=== PATIENT | female | born 1945 | race Caucasian/White ===

== ENCOUNTER → 2022-10-09 13:35 | Outpatient (CLI) | payer MEDICARE, OTHER, SELFPAY ==
[2022-10-09 15:32] LABS: Adenovirus F 40/41 Not Detected (Not Detect); Astrovirus Not Detected (Not Detect); Campylobacter Not Detected (Not Detect); Clostridium difficile toxin AB Not Detected (Not Detect); Cryptosporidium Detected (Not Detect); Cyclospora cayetanensis Not Detected (Not Detect); Entamoeba histolytica Not Detected (Not Detect); Enteroaggregative E.coli Not Detected (Not Detect); Enteropathogenic E.coli Detected (Not Detect); Enterotoxigenic E.coli It/st Not Detected (Not Detect); Giardia lamblia Not Detected (Not Detect); Norovirus GI/GII Not Detected (Not Detect); Plesiomonsa shigelloides Not Detected (Not Detect); Rotavirus A Not Detected (Not Detect); Salmonella Not Detected (Not Detect); Sapovirus Not Detected (Not Detect); Shiga-like toxin-prod E.coli Not Detected (Not Detect); Shigella/Enteroinvasive E.coli Not Detected (Not Detect); Vibrio Not Detected (Not Detect); Vibrio cholerae Not Detected (Not Detect); Yersinia enterocolitica Not Detected (Not Detect)
== END ==
PROVIDERS: Registered Nurse; Referring Provider Nurse Practitioner Family; Visit Provider Nurse Practitioner Family
DX: R19.7 Diarrhea, unspecified (principal)
CPT/HCPCS: 87329; 87507

== ENCOUNTER → 2022-10-15 14:10 | Outpatient (CLI) | payer MEDICARE, OTHER, SELFPAY ==
[2022-10-15 15:44] LABS: Occult Blood 1 Negative (Negative); Occult Blood 2 Negative (Negative); Occult Blood 3 Negative (Negative)
== END ==
PROVIDERS: Referring Provider Nurse Practitioner Family; Visit Provider Nurse Practitioner Family
DX: R19.7 Diarrhea, unspecified (principal)
CPT/HCPCS: 82270

== ENCOUNTER → 2025-08-09 09:25 | Outpatient (CLI) | payer MEDICARE, OTHER, SELFPAY ==
--- NOTE | 2025-08-09 13:00 | ST.SWALLOW ---
Visit Care Team Role Provider Type Jennifer Olson DO Primary Care Provider Non-Staff Specialty: Family Practice Address: [address] [place] [address], [id number] Email: Mainor Flowers MD Attending Provider Physician Referring Provider Specialty: Ear, Nose, Throat Address: [address] [place] [address], [id number] Email: [email or web address] Modified Barium Swallow Study [employer] Modified Barium Swallow Study Start: 08/09/25 11:41 Freq: Status: Active Protocol: Document 08/09/25 11:41 LNK (Rec: 08/09/25 13:00 LNK Desktop) Modified Barium Swallow Study Total Time Visit Start Time 10:00 Visit Stop Time 10:45 Total Visit Minutes 45 Referral Referring Physician Mainor Flowers MD, ENT Reason for Referral dysphagia Setting Setting Outpatient Care Patient Information Identification Type Name,Date of Patient History Pt was seen for a Modified Barium Swallow study at the referral of Dr. Flowers, ENT. Pt reported difficulty swallowing large pills (i.e., supplements) and foods like breads and meats. She described a globus sensation near the thyroid notch that has been ongoing or the past year. Pt noted that drinking a lot of water helps relieve the sensation. During meals, pt reported she normally doesn't drink liquids. Pt denied any difficulty swallowing liquids. Pt stated she has no formal diagnosis of GERD although she suspects she may have reflux as she occasionally needs to take Pepcid AC. Relative to other PMH, the pt denied any neurological diagnoses and/or history of head/neck surgery/injury. Subjective Pt was seated in the flouroscopy chair with directions Observations and procedures explained for her. She indicated she understood and agreed to proceed. Patient Positioning Position View Lat-A/P Imaging Lateral View Textures Administered Trials Presented Thin Liquid via Spoon (IDDSI 0),Thin Liquid via Cup ( IDDSI 0),Extremely Thick Liquid via Spoon (IDDSI 4), Regular (IDDSI 7) Barium Tablet Yes The IDDSI Framework Protocol: IDDSI.1 Oral Impairment Source: The Modified Barium Swallow Impairment Profile (MBSImP??) Lip Closure No labial escape Tongue Control Cohesive bolus between tongue to palatal seal During Bolus Hold Bolus Preparation/ Timely & efficient chewing & mashing Mastication Bolus Transport/ Brisk tongue motion Lingual Motion Oral Residue Trace residue lining oral structures Location Tongue Initiation of Bolus head at posterior angle of ramus (first hyoid Pharyngeal Swallow excursion) Additional Oral *OME and DKS were observed to be WNL. Impairment *Dentition natural and in good hygiene Observations *Mastication observed with rotary chew pattern. *Good bolus formation, control and AP transition. *Velopharyngeal closure was WNL. Oral phase of swallow WNL Pharyngeal Impairment Source: The Modified Barium Swallow Impairment Profile (MBSImP??) Soft Palate No bolus between soft palate & pharyngeal wall Elevation Laryngeal Elevation Comp.sup.move.thyroid cart.w/comp.approx.arytenoids to epiglot petiole Anterior Hyoid Complete anterior movement Excursion Epiglottic Movement Complete inversion Laryngeal Vestibular Complete; no air/contrast in laryngeal vestibule Closure Pharyngeal Stripping Present - complete Wave Pharyngoesophageal Complete distention & complete duration; no obstruction Segment Opening of flow Tongue Base No contrast between tongue base & posterior pharyngeal Retraction wall Pharyngeal Residue Collection of residue within/on pharyngeal structures Location Valleculae Additional *Hyoid/laryngeal elevation and epiglottic inversion Pharyngeal were judged to be adequate. Impairment *Tongue base retraction was mildly reduced resulting in Observations trace residue. *Pharyngeal stripping wave and cricopharyngeal opening appeared adequate and did not appear to impede bolus flow. *Post-swallow residue was mild primarily at the base of tongue and vallecula . *No laryngeal penetration or tracheal aspiration was observed. *Pharyngeal phase of swallow WNL. A/P View The IDDSI Framework Protocol: IDDSI.1 A/P View Observations Pharyngeal Complete Contraction Esophageal Clearance Complete clearance; esophageal coating Upright Position Vocal Fold Function Good Esophageal Function WFL Additional A-P Thin barium liquid and a calibrated barium tablet were Observations provided for AP trials *Initial AP view of the esophagus indicated all previous trials had cleared to the stomach *Thin barium liquid and barium tablet cleared to the stomach in a timely manner Esophageal phase of swallow observed to be WNL Clinical Impressions Dysphagia Type WNL Findings The pt presented with swallowing across all three phases to be WNL. Pt initially reported a sense of globus when eating breads, meats or when taking large supplements. She also reported that during meals, she typically has not drunk liquids, rather waiting until the meal is over to drink. During the past year, when she feels the food become stuck, she has used liquids during her meals to relieve the globus sensation. Pt's symptoms appear to be related to age effects on esophageal motility. This was explained to the pt, that, as she ages, esophageal peristalsis may slow. This may then result in a sensation that the food is stuck in her throat. The referred sensation of globus was described to the pt as being related to the slower esophageal function that can occur with age. Pt was encouraged to drink more liquids when eating to aid in esophageal clearance and reduce the globus sensation. It was also recommended that the pt use a carrier such as yogurt, pudding, etc. to aid in swallowing large capsules. The above results and recommendations of the MBSS were described to the pt while observing still pictures taken during the MBSS. Pt expressed appreciation and indicated she understood. All pt questions were addressed. Patient Appropriate No for Therapy Recommendations Diet Comments no diet change recommended
== END ==
LOC: RAD 09:26
PROVIDERS: PCP Family Medicine; Referring Provider Otolaryngology; Visit Provider Otolaryngology
DX: R13.19 Other dysphagia (principal)
CPT/HCPCS: 74230; 92611